=== PATIENT | male | born 1965 | race African-American/Black ===

== ENCOUNTER 2025-08-03 12:11 | Outpatient (AMB) | payer OTHER, MEDICAID, SELFPAY ==
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
[2025-08-03 13:16] VITALS: BMI 30.1
--- OUTSIDE RECORDS SUMMARY | 2025-08-03 16:01 | XMS_ITS | Clinical Summary ---
Author Organization [place] [address] [address] [facility] Address [address] [place] [address] Phone Care Team Providers Care Head Host/Hostess Name Role Phone Parmjit Doss MD Primary Care Provider [phone] Allergies No known active allergies Medications pantoprazole (PROTONIX) 40 mg EC tablet Take 1 tablet (40 mg total) by mouth 1 (one) time each day. 4 Active cetirizine (ZyrTEC) 10 mg tablet Take 1 tablet (10 mg total) by mouth 1 (one) time each day. For 360 days 4 Active potassium chloride 20 mEq tablet extended release Take 2 Tablets by mouth 3 times daily. 4 Active cyclobenzaprine (FLEXERIL) 5 mg tablet Take 1 tablet (5 mg total) by mouth 3 (three) times a day if needed for muscle spasms. 60 tablet 3 5 Active amLODIPine (NORVASC) 10 mg tablet TAKE 1 TABLET BY MOUTH 1 TIME EACH DAY. 90 tablet 1 5 Active escitalopram (LEXAPRO) 20 mg tablet TAKE 1 TABLET (20 MG TOTAL) BY MOUTH ONE TIME EACH DAY 90 tablet 1 5 Active traZODone (DESYREL) 50 mg tablet TAKE 1 TABLET BY MOUTH AT BEDTIME NEEDED FOR SLEEP. 90 tablet 1 5 Active lisinopril (PRINIVIL,ZESTR IL) 40 mg tablet Take 1 tablet (40 mg total) by mouth 1 (one) time each day. 90 each 3 5 07/07/20 26 Active atorvastatin (LIPITOR) 20 mg tablet Take 1 tablet (20 mg total) by mouth at bedtime. 90 each 3 5 07/07/20 26 Active atorvastatin (LIPITOR) 20 mg tablet TAKE 1 TABLET BY MOUTH EVERY DAY 90 tablet 1 5 07/07/20 25 Discontinu ed(Reorder ) amLODIPine (NORVASC) 5 mg tablet TAKE 1 TABLET BY MOUTH EVERY DAY 90 tablet 1 5 07/07/20 25 Discontinu ed(Dose adjustment ) lisinopril (PRINIVIL,ZESTR IL) 40 mg tablet TAKE 1 TABLET BY MOUTH EVERY DAY 90 tablet 1 5 07/07/20 25 Discontinu ed(Duplica te order) lisinopril (PRINIVIL,ZESTR IL) 40 mg tablet Take 1 tablet (40 mg total) by mouth 1 (one) time each day. 4 07/07/20 25 Discontinu ed(Reorder ) Active Problems Problem Noted Date Diagnosed Date Mixed hyperlipidemia 04/11/2023 Obesity (BMI 30-39.9) 04/11/2023 Gastroesophageal reflux disease without esophagi tis 04/11/2023 Anxiety and depression 04/11/2023 Essential hypertension 04/01/2019 PTSD (post-traumatic stress disorder) 04/01/2019 Noncompliance with diagnostic testing 10/17/2018 Overview (07/03/2024): For screening colonoscopy GI said 10/17/18 All attempts to schedule patient with GI have been exhausted. Encounters Date Type Department Care Team Description 07/29/2025 Telephone Internal Medicine - [address] [phone] Parmjit Doss MD 07/19/2025 Telephone Internal Medicine [address] [phone] Parmjit Doss MD 07/07/2025 3:45 PM EST Office Visit Internal Medicine [address] [phone] Parmjit Doss MD Chronic low back pain, unspecified back pain laterality, unspecified whether sciatica present (Primary Dx); Essential hypertension; Mixed hyperlipidemia; Elevated blood pressure reading; Fall, sequela 06/22/2025 Telephone Internal Medicine - [place] [address] [facility] [address] [place] [address] Parmjit oDss MD from Last 3 Months Immunizations Immunization Administration Dates Next Due Influenza Quadravalent, MDCK , 0.5ml, preservative free (Flucelvax) 6mo and older 06/16/2018 Surgical History Surgery Date Site/Laterality Comments MULTIPLE TOOTH EXTRACTIONS 1982 PROCEDURE: HISTORICAL DENTAL EXTRACTION; COMMENT: lost multiple teeth playing football Medical History Medical History Date Comments Essential hypertension 04/01/2019 DX:Essent ial hypertension Mixed hyperlipidemia 04/11/2023 DX:Mixed hy perlipidemia Obesity (BMI 30-39.9) 04/11/2023 DX:Obesity (BMI 30-39.9) Gastroesophageal reflux dise ase without esophagitis 04/11/2023 DX:Gastroesophageal reflux d isease without esophagitis PTSD (post-traumatic stress disorder) 04/01/2019 DX:PTSD (post-traumatic stress disorder) Anxiety and depression 04/11/2023 DX:Anxiet y and depression Family History Medical History Relation Name Comments Other: on disability ?etiol Brother Trino Coronary artery disease Father age -70 in [place], obese, nonsmoker Hypertension Maternal Grandfather Hypertension Maternal Grandmother Multiple myeloma Mother Other: pulmonary embolism Mother Relation Name Status Comments Brother Trino Alive Father Maternal Grandfather Maternal Grandmother Mother Sister 1 Alda Alive Sister 2 Monika Alive Social History Tobacco Use Types Packs/Day Years Used Date Smoking Tobacco: Never Smokeless Tobacco: Never Tobacco Cessation:Counseling Given: Not Answered Alcohol Use Standard Drinks/Week Comments No 0 (1 standard drink = 0.6 oz pur e alcohol) Housing Instability Answer Date Recorde d Are you worried that in the next 2 months you may not have stable housing? No 07/07/2025 Food Access & Nutrition Answer Date Rec orded Do you have access to a vari ety of food including fruits and vegetables? No 07/07/2025 Health Literacy Answer Date Recorded How often do you need to hav e someone help you when you read instructions, pamphlets, or other written material from your doctor or pharmacy? Never 07/07/2025 Caregiver: How often do you need to have someone help you when you read instructions, pamphlets, or other written material from your doctor or pharmacy? Not on file 07/07/2025 Financial Risk Answer Date Recorded How hard is it for you to pa y for the very basics like food, housing, medical care, and air conditioning / heating? Not very hard 07/07/2025 Transportation Answer Date Recorded Has the lack of transportati on kept you from meetings, work, or from getting things needed for daily living? No Has the lack of transportati on kept you from medical appointments or from getting medications? No 07/07/2025 Social Isolation Answer Date Recorded How often do you feel lonely or isolated from th ose around you? Never 07/07/2025 Food Risk Answer Date Recorded Within the past 12 months we worried whether our food would run out before we got money to buy more. Never true 07/07/2025 Within the past 12 months th e food we bought just didn't last and we didn't have money to get more. Never true 07/07/2025 Dependent Care Answer Date Recorded Do you need help finding or paying for care for your loved ones. For example, child and adolescent psychiatrist or elderly care for an older adult? No 07/07/2025 Employment and Income Answer Date Recor ded During the last four weeks, have you been actively looking for work? No 07/07/2025 Living Situation Answer Date Recorded What is your living situation? Unrecognized valu e 07/07/2025 Sex and Gender Information Value Date Recorded Sex Assigned at Not on file Legal Sex Male 1:29 AM EST Gender Identity Not on file Sexual Orientation Not on file Last Filed Vital Signs Vital Sign Reading Time Taken Comments Blood Pressure 138/88 07/07/2025 3:58 PM EST Pulse 99 07/07/2025 3:32 PM EST Temperature 36.4 C (97.5 F) 07/07/2025 3:32 PM EST Respiratory Rate - - Oxygen Saturation 100% 07/07/2025 3:32 PM EST Inhaled Oxygen Concentration - - Weight 89.8 kg (198 lb) 07/07/2025 3:32 PM EST Height 172.7 cm (5' 8 ) 09/01/2024 9:49 AM EST Body Mass Index 30.11 09/01/2024 9:49 AM EST Plan of Treatment Upcoming Encounters Date Type Department Care Team (Late st Contact Info) Description 08/23/2025 2:30 PM EST Evaluation [facility] [place] [address] [facility] [address] [place] [address] Logan Herrera, PT 01/11/2026 1:00 PM EDT Office Visit Internal Medicine - [place] [address] [facility] [address] [place] [phone] Parmjit Doss MD [address] [place] [phone] Health Maintenance Due Date Last Done Comments Hepatitis B Vaccines (1 of 3 - 19+ 3-dose series) 1984 Pneumococcal Vaccine: 50+ Years (1 of 1 - PCV) 10/24/2015 Zoster Vaccines (1 of 2) 10/24/2015 HIV Screening 07/28/2022 Medicare Annual Wellness Visit 07/28/2022 COVID-19 Vaccine (1 - 2024-2 6 season) 2025 Influenza Vaccine (#1) 2025 06/16/2018 Hypertension/CHF/CAD Annual BMP Blood Test 12/14/2025 12/14/2024, 11/13/2023 Social Influencers of Health Screening 07/07/2026 07/07/2025, 11/30/2024 DTaP,Tdap,and Td Vaccines (2 - Td or Tdap) 10/18/2027 10/17/2017 Cholesterol Screening (Lipid Panel) 12/14/2029 12/14/2024, 11/13/2023 Colorectal Cancer Screening: Colonoscopy 01/02/2033 01/02/2023 RSV Immunization Adult Patients (1 - 1-dose 75+ series) 2040 Hepatitis C Screening Completed 07/04/2021 Depression Screening Completed 07/07/2025 HIB Vaccines Aged Out No longer eligi ble based on patient's age to complete this topic HPV Vaccines Aged Out No longer eligi ble based on patient's age to complete this topic Hepatitis A Vaccines Aged Out No long er eligible based on patient's age to complete this topic IPV Vaccines Aged Out No longer eligi ble based on patient's age to complete this topic MMR Vaccines Aged Out No longer eligi ble based on patient's age to complete this topic Meningococcal ACWY Vaccine Aged Out N o longer eligible based on patient's age to complete this topic Meningococcal B Vaccine Aged Out No l onger eligible based on patient's age to complete this topic RSV Immunization Patients Under 20 months Aged Out No longer eligible b ased on patient's age to complete this topic Varicella Vaccines Aged Out No longer eligible based on patient's age to complete this topic Procedures Procedure Name Priority Date/Time Associated Diagnosis Comments COMPREHENSIVE METABOLIC PANEL Routine 12/14/2024 11:22 AM EDT Encounter for annual physical exam LIPID PANEL WITH REFLEX TO DIRECT LDL Routine 12/14/2024 11:22 AM EDT Encounter for annual physical exam Mixed hyperlipidemia HEPATITIS C SCREENING Routine 07/04/2021 from Last 3 Months or Most Recently Relevant to Health Maintenance Results * (ABNORMAL) Lipid panel with reflex to direct LDL (12/14/2024 11:22 AM EDT) Cholesterol 203(H) 0 - 200 mg/dL LAB CHEMISTRY METHOD 12/14/2024 7:36 PM [facility] Triglycerides 51 0 - 150 mg/dL LAB CHEMISTRY METHOD 12/14/2024 7:36 PM [facility] HDL 67 >=40 mg/dL LAB CHEMISTRY METHOD 12/14/2024 7:36 PM [facility] LDL Calculated 126(H) 0 - 100 mg/dL LAB CHEMISTRY METHOD 12/14/2024 7:36 PM [facility] VLDL Cholesterol Solo 10.2 mg/dL LAB CHEMISTRY METHOD 12/14/2024 7:36 PM [facility] Non HDL Chol. (LDL+VLDL) 136 <145 mg/dL LAB CHEMISTRY METHOD 12/14/2024 7:36 PM [facility] Chol/HDL Ratio 3.0 0.0 - 4.4 LAB CHEMISTRY METHOD 12/14/2024 7:36 PM [facility] Blood Venous blood specimen / Unknown Venipuncture / Unknown 12/14/2024 11:22 AM EDT 12/14/2024 12:00 PM EDT Parmjit Doss MD LAB BLOOD ORDERABLES Final Resul t [facility] [address] [place] [address], * (ABNORMAL) Comprehensive metabolic panel (12/14/2024 11:22 AM EDT) Sodium 138 133 - 145 mmol/L LAB CHEMISTRY METHOD 12/14/2024 7:36 PM [facility] Potassium 3.7 3.5 - 5.5 mmol/L LAB CHEMISTRY METHOD 12/14/2024 7:36 PM [facility] Chloride 104 96 - 110 mmol/L LAB CHEMISTRY METHOD 12/14/2024 7:36 PM [facility] CO2 27 21 - 32 mmol/L LAB CHEMISTRY METHOD 12/14/2024 7:36 PM [facility] Anion Gap 7 3 - 11 LAB CHEMISTRY METHOD 12/14/2024 7:36 PM [facility] Glucose 99 70 - 100 mg/dL LAB CHEMISTRY METHOD 12/14/2024 7:36 PM [facility] BUN 10 5 - 25 mg/dL LAB CHEMISTRY METHOD 12/14/2024 7:36 PM [facility] Creatinine 0.61(L) 0.70 - 1.30 mg/dL LAB CHEMISTRY METHOD 12/14/2024 7:36 PM [facility] eGFR 111 >=60 mL/min/1. 73m2 LAB CHEMISTRY METHOD 12/14/2024 7:36 PM [facility] Comment:Calculation based on the Chronic Kidney Disease Epidemiology Collaboration (CKD-EPI) equation refit without adjustment for race. BUN/Creatinine Ratio 16.4 LAB CHEMISTRY METHOD 12/14/2024 7:36 PM EDT [facility] Calcium 8.9 8.5 - 10.5 mg/dL LAB CHEMISTRY METHOD 12/14/2024 7:36 PM [facility] AST (SGOT) 25 10 - 42 unit/L LAB CHEMISTRY METHOD 12/14/2024 7:36 PM [facility] ALT (SGPT) 38 10 - 60 unit/L LAB CHEMISTRY METHOD 12/14/2024 7:36 PM [facility] Alkaline Phosphatase 88 42 - 121 unit/L LAB CHEMISTRY METHOD 12/14/2024 7:36 PM [facility] Total Protein 7.8 6.0 - 8.0 g/dL LAB CHEMISTRY METHOD 12/14/2024 7:36 PM [facility] Albumin 4.1 3.2 - 5.0 g/dL LAB CHEMISTRY METHOD 12/14/2024 7:36 PM [facility] Total Bilirubin 0.5 0.0 - 1.4 mg/dL LAB CHEMISTRY METHOD 12/14/2024 7:36 PM [facility] Blood Venous blood specimen / Unknown Venipuncture / Unknown 12/14/2024 11:22 AM EDT 12/14/2024 12:00 PM EDT Parmjit Doss MD LAB BLOOD ORDERABLES Final Resul t [facility] [address] [place] [address], * Hepatitis C Screening (07/04/2021) Pathologist [facility] Hepatitis C Screening abstracted Historical Provider HEALTH MAINTENANCE Final Result from Last 3 Months or Most Recently Relevant to Health Maintenance Insurance [employer] MEDICARE MEDICAID - [place] Care Teams Head Host/Hostess Relationship Specialty Start Date End Date Parmjit Doss MD [address] [place] [phone] PCP - General 08/23/22
--- OUTSIDE RECORDS SUMMARY | 2025-08-03 16:01 | XMS_ITS | Encounter Summary ---
Author Organization [facility] Address [address] [place] [address] Care Team Providers Care Motel Manager Name Role Phone Parmjit Doss MD Primary Care Provider [phone] Reason for Visit * Reason Onset Date Comments Request For Order(s) 07/29/2025 Encounter Details Date Type Department Care Team (Late st Contact Info) Description 07/29/2025 Telephone Internal Medicine [facility] [address] [place] [address] Parmjit Doss MD [address] [place] [phone] Social History Tobacco Use Types Packs/Day Years Used Date Smoking Tobacco: Never Smokeless Tobacco: Never Alcohol Use Standard Drinks/Week Comments No 0 [...] for your loved ones. For example, child welfare manager or elderly care for an older adult? [...] on file Sexual Orientation Not on file documented as of this encounter Progress Notes * Joyce Gavin RN - 07/29/2025 2:31 PM EST [facility] Nurse reports hearing a heart murmer and suggests ordering an Echocardiogram for pt. Pt asymptomatic. NOV 01/11/26 * Nettie Siu - 07/29/2025 2:19 PM EST [facility] Nurse called to report pt has a cardiac murmer and pt was unaware of this. She requested for ptto have an echocardiogram. Pt did not have any symptoms he is fine so it is not urgent. She did notneed a call back. Please advise. documented in this encounter Plan of Treatment Upcoming Encounters Date Type Department Care Team (Late st Contact Info) Description 08/23/2025 2:30 PM EST Evaluation [facility] [place] [address] [facility] [address] [place] [phone] Logan Herrera, PT 01/11/2026 1:00 PM EDT Office Visit Internal Medicine - [place] [address] [facility] [address] [place] [phone] Parmjit Doss MD [address] [place] [phone] documented as of this encounter Visit Diagnoses Not on filedocumented in this encounter Additional Health Concerns Assessment Noted Time PHQ-9 Depression Total Score: 0 07/07/20 25 4:01 PM EST documented as of this encounter Care Teams Motel Manager Relationship Specialty Start Date End Date Parmjit Doss MD [address] [facility] [address] [place] [phone] PCP - General 08/23/22 documented as of this encounter
== END 2025-08-03 13:40 | disposition home or self-care (01) ==
LOC: HO.HPHYS 12:11
PROVIDERS: PCP Student in an Organized Health Care Education/Training Program; Visit Provider Physician Assistant
DX: M54.16 Radiculopathy, lumbar region (principal); M47.816 Spondylosis without myelopathy or radiculopathy, lumbar region
CPT/HCPCS: 99204